=== PATIENT | female | born 1980 | race Caucasian/White ===

== ENCOUNTER 2018-12-01 21:17 | Emergency (ER) | payer BC ==
[~2018-12-01] VITALS: Ht 162.6 cm; Wt 127.3 kg
[2018-12-01 21:28] VITALS: TEMP 97
[2018-12-01] MEDS ORDERED: METHOTREXA2.5 MG/TAB PO (21:31)
[2018-12-01] MEDS ORDERED: NORVASC 5MG5 MG/TAB PO (21:31)
[2018-12-01] MEDS ORDERED: MOBIC15 MG PO (21:32)
[2018-12-01] MEDS ORDERED: CATAPRES 0.1MG0.1 MG PO (21:32)
[2018-12-01] MEDS ORDERED: BENICAR40 MG PO (21:32)
[2018-12-01] MEDS ORDERED: AZULFIDINE ENT500 MG PO (21:32)
[2018-12-01] MEDS ORDERED: PLAQUENIL 200M200 MG PO (21:33)
[2018-12-01 22:45] VITALS: BP 178/108; PULSE 103
== END 2018-12-01 22:45 | disposition home or self-care (01) ==
LOC: COL.ER 21:17
DX: M79.672 Pain in left foot (principal); I10 Essential (primary) hypertension; Z90.710 Acquired absence of both cervix and uterus

== ENCOUNTER 2019-02-04 07:10 | Day surgery (SDC) | payer BC ==
[2019-02-04] VITALS (7 sets, daily range): BP systolic 110–130; BP diastolic 66–90; PULSE 71–94; TEMP 98.2–98.9
[~2019-02-04] VITALS: Ht 162.6 cm; Wt 131.1 kg
[~2019-02-04 07:10] MED LIST: AZULFIDINE ENT500 MG PO; BENICAR40 MG PO; CATAPRES 0.1MG0.1 MG PO; METHOTREXA2.5 MG/TAB PO; MOBIC15 MG PO; NORVASC 5MG5 MG/TAB PO; PLAQUENIL 200M200 MG PO
[2019-02-04] MEDS ORDERED: TIMOPTIC 0.5%-15 OU (07:55)
[2019-02-04] MEDS ORDERED: FOLIC ACID800 MCG PO (07:59)
[2019-02-04] MEDS ORDERED: XALATAN EYE DROPS OU (08:01)
[2019-02-04] MEDS ORDERED: CEFTIN 250250 MG/TAB PO (08:03)
--- NOTE | 2019-02-04 08:04 | NUR ---
TO RM AT 0717- CALL LIGHT IN REACH NO WITH PATIENT AT THIS TIME
--- NOTE | 2019-02-04 11:20 | NUR ---
TO RM 7 PER CART FROM PACU. PAIN 10/14. DOES C/O " SOME " NAUSEA LEFT KNEE ELEVATED ON PILLOW AND ICED. CMS CHECK GOOD. NO NUMBNESS OR TINGLING IN LEFT FOOT. RECEIVED ICE WATER.
--- NOTE | 2019-02-04 11:35 | NUR ---
CONTINUES TO TAKE SMALL SIPS OF WATER. PATIENT STATED SHE IS VERY CAUTIOUS OF EATING DUE TO HX OF NAUSEA.
--- NOTE | 2019-02-04 11:55 | NUR ---
DENIES PAIN OR DISCOMFORT RECEIVED JELLO, AFTER 1ST BITE PATIENT BECAME NAUSEATED AND HAD VOMITING. RECEIVED PHENERGAN 6.25MG IV SLOW PUSH.
[2019-02-04] MEDS ORDERED: NORCO 325 MG-7.1 TAB PO (11:58)
--- NOTE | 2019-02-04 12:35 | NUR ---
PATIENT STATED SHE FEELING MUCH BETTER . ATE 100% JELLO AND STATED SHE FEELS FINE. DENIES PAIN OR DISCOMFORT AT THIS TIME
--- NOTE | 2019-02-04 12:50 | NUR ---
UP AMBULATED TO BATHROOM USING A WALKER. VOIDED AND AMBULATED BACK TO BED.
--- NOTE | 2019-02-04 13:00 | NUR ---
RECEIVED DISCHARGE INSTRUCTIONS AND VERBALIZED UNDERSTANDING. DISCONTINUED IV AND INT- CATHETER INTACT PATIENT GETTING DRESSED.
--- NOTE | 2019-02-04 13:20 | NUR ---
DISCHARGED PER WC BY NURSING STAFF TO PRIVATE CAR IN CARE OF REBEKA MARTINEZ
== END 2019-02-04 13:39 | disposition home or self-care (01) ==
LOC: SDCO 07:10
DX: M65.9 Synovitis and tenosynovitis, unspecified (principal); M10.9 Gout, unspecified; Z90.710 Acquired absence of both cervix and uterus; Z82.5 Family history of asthma and other chronic lower respiratory diseases; Z87.891 Personal history of nicotine dependence; Z83.3 Family history of diabetes mellitus; Z82.49 Family history of ischemic heart disease and other diseases of the circulatory system; Z82.61 Family history of arthritis; I10 Essential (primary) hypertension; J30.2 Other seasonal allergic rhinitis
CPT/HCPCS: J0690; J1885; J2405; J2550; J2704; J3010; J7120

== ENCOUNTER → 2023-09-15 | Outpatient (CLI) | payer BC ==
[~2023-09-15] MED LIST changes: +CEFTIN 250250 MG/TAB PO; +FOLIC ACID800 MCG PO; +NORCO 325 MG-7.1 TAB PO; +TIMOPTIC 0.5%-15 OU; +XALATAN EYE DROPS OU
== END ==
LOC: COL.RAD 14:24
DX: I70.1 Atherosclerosis of renal artery (principal)
CPT/HCPCS: Q9967